=== PATIENT | female | born 1970 | race Two or more races ===

== ENCOUNTER 2019-03-19 08:42 | Emergency (ER) | payer MEDICAID ==
[~2019-03-19] VITALS: Ht 165.1 cm; Wt 70.0 kg
[~2019-03-19 08:42] MED LIST: IBUP-2028 PO; METO-539 PO; SIMV10TA6 PO
[2019-03-19] MEDS ORDERED: SODIUM CHLORIDE 0.9% 1,000 ML IV ONE (09:07)
[2019-03-19] MEDS ORDERED: ONDANSETRON HCL 4MG/2ML INJ IV STA (09:07)
[2019-03-19] MEDS ORDERED: KETOROLAC 30MG/ML VIAL IV STA (09:07)
[2019-03-19 09:30] LABS: BASOPHILS % 0.5 % (0.0-2.0); EOSINOPHILS % 0.8 % (0.0-5.0); HEMATOCRIT. 43.4 % (36.0-48.0); HEMOGLOBIN. 14.8 g/dL (12.0-16.0); LYMPHOCYTES % 31.2 % (20.0-50.0); MEAN CORPUSCULAR HEMOGLOBIN 30.2 pg (28.0-32.0); MEAN CORPUSCULAR VOLUME 88.3 fL (81.0-99.0); MEAN PLATELET VOLUME 8.5 fl (7.4-10.4); MONOCYTES % 7.1 % (2.0-8.0); NEUTROPHILS % 60.4 % (40.0-76.0); PLATELET 249 x1000/uL (130-400); RED BLOOD CELL COUNT 4.91 mill/uL (4.2-5.4); RED CELL DISTRIBUTION WIDTH 12.6 % (11.6-14.6)
[2019-03-19 09:31] LABS: CHLORIDE 105 mEq/L (98-107)
[2019-03-19 09:47] LABS: CLARITY URINE CLEAR (CLEAR); COLOR URINE YELLOW (YELLOW); KETONES URINE NEGATIVE (NEGATIVE); LEUKOCYTE ESTERASE URINE TRACE (NEGATIVE); NITRITE URINE NEGATIVE (NEGATIVE); OCCULT BLOOD URINE NEGATIVE (NEGATIVE); PH URINE 6.5 (4.5-8.0); PROTEIN URINE NEGATIVE (NEGATIVE); SPECIFIC GRAVITY URINE 1.007 (1.005-1.030); UROBILINOGEN URINE 0.2 E.U./dL (0.2-1.0)
[2019-03-19 11:30] VITALS: BP 133/63
[2019-03-19] MEDS ORDERED: ONDANSETRON HCL 4MG/2ML INJ IV ONE (11:30)
[2019-03-19] MEDS ORDERED: MORPHINE SULFATE 4 MG/ML CPJ (NOT FOR IM USE) IV ONE (11:30)
== END 2019-03-19 12:00 | disposition home or self-care (01) ==
LOC: ER 08:42
DX: R10.9 Unspecified abdominal pain (principal); R11.2 Nausea with vomiting, unspecified; R30.0 Dysuria; E11.9 Type 2 diabetes mellitus without complications; E78.00 Pure hypercholesterolemia, unspecified; I10 Essential (primary) hypertension; Z86.73 Personal history of transient ischemic attack (TIA), and cerebral infarction without residual deficits
CPT/HCPCS: 36415; 76770; 80053; 81003; 81025; 83690; 85025; 96361; 96374; 96375; 96376; 99284; J1885; J2270; J2405; J7030; Z7610

== ENCOUNTER 2019-09-02 15:28 | Inpatient (IN) | payer MEDICAID ==
[~2019-09-02] VITALS: Ht 160 cm; Wt 75.7 kg
[2019-09-02] MEDS ORDERED: SODIUM CHLORIDE 0.9% 1,000 ML IV ONE (16:01)
[2019-09-02] MEDS ORDERED: MORPHINE SULFATE 4 MG/ML CPJ (NOT FOR IM USE) IV STA (16:01)
[2019-09-02] MEDS ORDERED: ONDANSETRON HCL 4MG/2ML INJ IV STA (16:01)
[2019-09-02 16:41] LABS: BASOPHILS % 0.7 % (0.0-2.0); EOSINOPHILS % 0.3 % (0.0-5.0); HEMATOCRIT. 40.4 % (36.0-48.0); HEMOGLOBIN. 13.9 g/dL (12.0-16.0); LYMPHOCYTES % 21.3 % (20.0-50.0); MEAN CORPUSCULAR HEMOGLOBIN 30.2 pg (28.0-32.0); MEAN CORPUSCULAR VOLUME 87.4 fL (81.0-99.0); MEAN PLATELET VOLUME 9.3 fl (7.4-10.4); MONOCYTES % 8.8 % (2.0-8.0); NEUTROPHILS % 68.9 % (40.0-76.0); PLATELET 210 x1000/uL (130-400); RED BLOOD CELL COUNT 4.62 mill/uL (4.2-5.4); RED CELL DISTRIBUTION WIDTH 13.1 % (11.6-14.6)
[2019-09-02 16:46] LABS: CHLORIDE 103 mEq/L (98-107)
[2019-09-02 16:49] LABS: INR 0.9; PARTIAL THROMBOPLASTIN TIME 25.9 sec (23.4-31.0); PROTHROMBIN TIME 9.7 sec (9.6-11.0)
[2019-09-02] MEDS ORDERED: ASPIRIN 325MG EC TABLET PO ONE (18:00)
[2019-09-02 18:45] LABS: CLARITY URINE CLEAR (CLEAR); COLOR URINE YELLOW (YELLOW); KETONES URINE 1+ (NEGATIVE); LEUKOCYTE ESTERASE URINE NEGATIVE (NEGATIVE); NITRITE URINE NEGATIVE (NEGATIVE); OCCULT BLOOD URINE NEGATIVE (NEGATIVE); PROTEIN URINE NEGATIVE (NEGATIVE); SPECIFIC GRAVITY URINE 1.034 (1.005-1.030)
[2019-09-03 01:15] VITALS: BP 172/92
[2019-09-03] MEDS ORDERED: ONDANSETRON HCL 4MG/2ML INJ IV PRN (04:45)
[2019-09-03] MEDS ORDERED: ACETAMINOPHEN 650MG/20.3ML UDC PO PRN (04:45)
[2019-09-03] MEDS ORDERED: LORAZEPAM 2MG/ML CPJ IV PRN (05:15)
[2019-09-03] MEDS ORDERED: CLONIDINE 0.1MG TABLET PO PRN (05:15)
[2019-09-03] MEDS ORDERED: HYDROCODONE/ACETAMINOPHEN 5/325MG TABLET PO PRN (05:15)
[2019-09-03] MEDS ORDERED: DEXTROSE 50% WATER 50ML SYRINGE IV PRN (05:30)
[2019-09-03] MEDS: BLOOD SUGAR DIAGNOSTIC STRIP TEST SCH ×2 (06:41→12:34)
[2019-09-03] MEDS: INSULIN LISPRO 100 UNITS/ML SUBCUT SCH ×2 (06:49→12:46)
[2019-09-03 07:21] VITALS: BP 142/75
[2019-09-03 08:00] VITALS: BP 142/75
[2019-09-03 09:50] LABS: *COCAINE SCREEN URINE NEGATIVE (NEGATIVE)
[2019-09-03 09:51] LABS: *AMPHETAMINES SCREEN URINE NEGATIVE (NEGATIVE); *BARBITURATES SCREEN URINE NEGATIVE (NEGATIVE); CANNABINOID URINE SCREEN NEGATIVE (NEGATIVE); METHADONE URINE SCREEN NEGATIVE (NEGATIVE); OPIATES URINE SCREEN PRESUMTIVE POSITIVE (NEGATIVE); PHENCYCLIDINE URINE SCREEN NEGATIVE (NEGATIVE)
[2019-09-03 09:52] LABS: *BENZODIAZEPINES SCREEN URINE NEGATIVE (NEGATIVE)
[2019-09-03 12:00] VITALS: BP 130/76
[2019-09-03 12:45] LABS: CREATINE KINASE 41 IU/L (26-192); LDL CHOLESTEROL 140 mg/dL (5-100)
[2019-09-03 12:46] LABS: HDL CHOLESTEROL 32 mg/dL (40-59)
[2019-09-03 12:47] LABS: CREATINE KINASE MB FRACTION < 1.0 ng/mL (0.5-3.6)
[2019-09-03] MEDS ORDERED: SIMV10TA6 PO (13:03)
[2019-09-03 16:00] VITALS: BP 117/75
[2019-09-03 16:51] VITALS: BP 122/69
== END 2019-09-03 18:30 | disposition home or self-care (01) | DRG 249 ==
LOC: ER 17:44 → 8WST 18:57 → EDBEDREQ 18:59 → ENRESERV 22:56
PROVIDERS: ADMIT Internal Medicine; ATTEND Internal Medicine
DX: K52.9 Noninfective gastroenteritis and colitis, unspecified (principal); E11.9 Type 2 diabetes mellitus without complications; E78.5 Hyperlipidemia, unspecified; E78.00 Pure hypercholesterolemia, unspecified; I10 Essential (primary) hypertension; Z79.84 Long term (current) use of oral hypoglycemic drugs; Z79.899 Other long term (current) drug therapy
CPT/HCPCS: 36415; 71045; 74176; 76705; 80061; 80305; 81003; 82550; 82553; 82962; 83036; 83735; 83880; 84443; 84484; 85379; 93005; 93306; 93970; 96361; 96374; 96375; 99285; J1815; J2270; J2405; J7030

== ENCOUNTER 2021-10-06 07:34 | Emergency (ER) | payer MEDICAID ==
[~2021-10-06] VITALS: Ht 160 cm; Wt 79.0 kg
[~2021-10-06 07:34] MED LIST changes: -SIMV10TA6 PO; +SIMV10TA97 PO
[2021-10-06 07:55] VITALS: BP 138/67
[2021-10-06] MEDS ORDERED: KETOROLAC 60MG/2ML VIAL IM ONE (08:15)
[2021-10-06] MEDS ORDERED: METH-773 MT (08:29)
== END 2021-10-06 10:01 | disposition home or self-care (01) ==
LOC: ER 07:34
DX: M54.40 Lumbago with sciatica, unspecified side (principal); I10 Essential (primary) hypertension; E11.65 Type 2 diabetes mellitus with hyperglycemia; E78.00 Pure hypercholesterolemia, unspecified; F32.9 Major depressive disorder, single episode, unspecified
CPT/HCPCS: 72100; 82962; 93970; 96372; 99284; J1885